=== PATIENT | male | born 1995 | race Caucasian/White ===

== ENCOUNTER 2019-11-04 19:30 | Emergency (ER) | payer SELFPAY ==
[2019-11-04 19:29] VITALS: BP 147/91; PULSE 106; RESP 18; TEMP 36.8; O2SAT 100
--- NOTE | 2019-11-04 19:33 | PC.NURSE ---
Pt states he wants to go home and that he didn't wish to come to the hospital to begin with but he felt pressured by the approver to come in. Pt states he doesn't want any test to be done. ERP aware.
--- NOTE | 2019-11-04 19:33 | ED.GENADULT ---
HPI - General Adult General Chief complaint: Unspecified Stated complaint: head injury Time Seen by Provider: 11/04/19 19:33 Source: patient and EMS Mode of arrival: EMS Limitations: no limitations History of Present Illness HPI narrative: Patient is a 24-year-old male who presents to emergency department per EMS from incarceration patient was brought to the emergency department he was striking his head at the [facility] where he has a small hematoma that is minimal in nature to the frontal scalp denies any headache loss of consciousness or other complaints denies suicidal or homicidal ideation Related Data Allergies Allergy/AdvReac Type Severity Reaction Status Date / Time No Known Allergies Allergy Unknown Unverified 12/02/18 18:22 Review of Systems Review of Systems: All systems reviewed & are unremarkable except as noted in HPI and below PMFSH Social History Social History (Updated 11/04/19 @ 19:34 by Darío Donis PA-C) Smoking status: Current every day smoker Exam Narrative: Exam Narrative: GENERAL: Well-appearing, well-nourished, and in no acute distress. HEAD: Normocephalic, small hematoma to the forehead EYES: PERRLA and EOMI. ENT: Nares clear, no rhinorrhea or epistaxis. Mucous membranes moist. CHEST: Clear to auscultation. No respiratory distress. No wheezes rales or rhonchi HEART: Regular rate and rhythm. No murmur heard. EXTREMITIES: Normal range of motion. No edema. SKIN: Warm, dry, no rash. NEURO: No focal deficits. Alert and oriented x3. Cranial nerves II through XII grossly intact PSYCH: Normal mood and affect. Course Course Emergency Course: Patient in the room in no distress aware of case findings treatment plan and diagnosis Vital Signs Vital signs: Vital Signs Temperature 98.2 F 11/04/19 19:29 Pulse Rate 106 H 11/04/19 19:29 Respiratory Rate 18 11/04/19 19:29 Blood Pressure 147/91 H 11/04/19 19:29 Pulse Oximetry 100 11/04/19 19:29 Temperature 98.2 F 11/04/19 19:29 Pulse Rate 106 H 11/04/19 19:29 Respiratory Rate 18 11/04/19 19:29 Blood Pressure 147/91 H 11/04/19 19:29 Pulse Oximetry 100 11/04/19 19:29 Medical Decision Making MDM Narrative Medical decision making narrative: Patient afebrile nontoxic-appearing no distress felt appropriate for outpatient reevaluation provided with reasons to return Vital Signs Vital Signs: Vital Signs Temperature 98.2 F 11/04/19 19:29 Pulse Rate 106 H 11/04/19 19:29 Respiratory Rate 18 11/04/19 19:29 Blood Pressure 147/91 H 11/04/19 19:29 Pulse Oximetry 100 11/04/19 19:29 Temperature 98.2 F 11/04/19 19:29 Pulse Rate 106 H 11/04/19 19:29 Respiratory Rate 18 11/04/19 19:29 Blood Pressure 147/91 H 11/04/19 19:29 Pulse Oximetry 100 11/04/19 19:29 Discharge Plan Discharge Clinical Impression: Head injury Patient Disposition: Home, Self-Care Condition: Stable Instructions: Antibiotic Form, Head Injury (ED) Additional Instructions: Follow up with your primary care doctor in 5-7 days for re-evaluation. Go to ER for worsening pain, vision changes, nausea/vomiting, fever/chills, weakness, chest pain, shortness of breath, numbness/tingling, slurred speech, difficulty walking, change in mental status etc. or any other concerns. Take any prescribed medications as directed. Follow-up/Referrals: PHYSICIAN,FITTER'S ASSISTANT [Primary Care Provider] - Lalo Herman MD [Physician] -
[2019-11-04 20:00] VITALS: BP 134/88; PULSE 98; RESP 18; O2SAT 98
== END 2019-11-04 20:02 | disposition home or self-care (01) ==
PROVIDERS: Emergency Provider Emergency Medicine
DX: S00.03XA Contusion of scalp, initial encounter (principal); W22.09XA Striking against other stationary object, initial encounter
CPT/HCPCS: 99282

== ENCOUNTER 2023-05-15 22:25 | Emergency (ER) | payer SELFPAY ==
--- NOTE | ~2023-05-15 | CT_ITS ---
EXAMINATION: CT soft tissue neck w con DATE: 05/16/2023 00:02 INDICATION: Evaluate for retained foreign body (fishbone) TECHNIQUE: Computed tomography (CT) of the neck was performed with 75 cc of Omnipaque 350 intravenous contrast. The dose-length product (DLP) was 481.07 mGy-cm. Automated exposure control and iterative reconstruction technique were employed. COMPARISON: None FINDINGS: There is a 1.7 cm thin, curvilinear, radiopaque foreign body embedded in the left tonsil wi th an approximately 3 mm portion external to the tonsil in the pharynx. No additional radiopaque fore ign body is identified. There is moderate bilateral cervical lymphadenopathy. No abscess is identifie d. IMPRESSION: 1. Curvilinear foreign body in the left tonsil, consistent with fishbone described in the clinical hi story. 2. Moderate bilateral cervical lymphadenopathy of unclear significance. Follow-up is recommended. Reviewed, dictated and finalized at location F. IMPRESSION: 1. Curvilinear foreign body in the left tonsil, consistent with fishbone descri bed in the clinical history. 2. Moderate bilateral cervical lymphadenopathy of unclear significance. Follow- up is recommended.
[2023-05-15 22:26] VITALS: BP 126/74; PULSE 90; RESP 20; TEMP 36.7; O2SAT 96
[2023-05-15] MEDS: LIDOCAINE HCL 2% VISC SOLN 15 ML UDC PO (22:44)
[2023-05-15 23:14] LABS: Anion Gap 6 mmol/L (8-16); Blood Urea Nitrogen 11 mg/dL (9-20); Calcium 9.3 mg/dL (8.4-10.2); Carbon Dioxide 34 mmol/L (22-30); Chloride 96 mmol/L (98-107); Estimated CRCL calculation 118 ml/min; Estimated Glomerular Filt Rate > 60; Glucose 94 mg/dL (65-110); Potassium 3.5 mmol/L (3.4-5.0); Sodium 136 mmol/L (137-145)
--- NOTE | 2023-05-16 00:41 | ED.SKABFB ---
HPI - Skin/Abscess/Foreign Bdy General Chief complaint: Skin/Abscess/Foreign Body Stated complaint: food bolus Time Seen by Provider: 05/16/23 00:41 History of Present Illness HPI narrative: This is a 28-year-old male, with no known past medical history, who presents to the emergency department with sensation of foreign body in the throat concerning for fishbone. The patient states he was eating catfish when he felt the sensation. He looked and saw fishbone. He attempted to remove it with pliers at home resulting in a significant amount of bloody mucus. He denies difficulty breathing, lightheadedness or loss of conscious Related Data Allergies Allergy/AdvReac Type Severity Reaction Status Date / Time No Known Allergies Allergy Unknown Unverified 12/02/18 18:22 Review of Systems Review of Systems: CONSTITUTIONAL: Denies fever, chills, or sweats. ENT: Foreign body sensation in throat denies rhinorrhea, congestion, or otalgia. CARDIOVASCULAR: Denies chest pain, palpitations, or edema. RESPIRATORY: Denies cough or dyspnea. GASTROINTESTINAL: Denies abdominal pain, nausea, vomiting, or diarrhea. NEUROLOGIC: Denies headache, numbness, dizziness, or weakness. PSYCHIATRIC: Denies anxiety or depression. PMFSH Past Medical History Medical History (Updated 05/16/23 @ 00:48 by Wan Fox MD) No significant past medical history Surgical History Surgical History (Updated 05/16/23 @ 00:48 by Wan Fox MD) No significant past surgical history Social History Social History (Updated 05/16/23 @ 00:48 by Wan oFx MD) Smoking status: Current every day smoker Alcohol intake: current Substance use: never Gender identity (if verbalized by the patient): Male Exam Narrative: GENERAL: Well-developed, well-nourished, and in no acute distress. HEAD: Normocephalic, atraumatic. EYES: PERRLA and EOMI. ENT: A foreign object consistent with fishbone is noted emerging from the left tonsil. There is a small amount of blood-tinged saliva but no active bleeding noted. Nares clear, no rhinorrhea or epistaxis. Mucous membranes moist. Oropharynx without tonsillar hypertrophy exudate or other lesions. NECK: Supple. No stridor CHEST: Clear to auscultation. No respiratory distress. No wheezes rales or rhonchi HEART: Regular rate and rhythm. No murmur heard. Normal peripheral pulses. NEURO: Alert and oriented x3. Moving all 4 limbs purposefully. PSYCH: Normal mood and affect. Course Course Emergency Course: 00:35 - My review of the patient's CT soft tissue neck is not concerning for active bleeding. The bone appears to be embedded next to the tonsil. It does not appear to be near the carotid artery. The patient again threatened to leave the emergency department. I was able to remove the fishbone with forceps without any noted bleeding. The patient tolerated procedure well.. See procedure note. Will discharge with recommendation for primary care follow-up. Discussed return emergency precautions including signs/symptoms of bleeding and airway compromise. The patient voiced understanding and is comfortable with the plan. All questions answered to his satisfaction. Vital Signs Vital signs: Vital Signs Temperature 98.1 F 05/15/23 22:26 Pulse Rate 90 05/15/23 22:26 Respiratory Rate 20 05/15/23 22:26 Blood Pressure 126/74 05/15/23 22:26 Pulse Oximetry 96 05/15/23 22:26 Oxygen Delivery Room Air 05/15/23 22:26 Temperature 98.1 F 05/15/23 22:26 Pulse Rate 90 05/15/23 22:26 Respiratory Rate 20 05/15/23 22:26 Blood Pressure 126/74 05/15/23 22:26 Pulse Oximetry 96 05/15/23 22:26 Oxygen Delivery Room Air 05/15/23 22:26 Procedures Foreign Body Removal Foreign Body #1: Foreign Body Removal Date: 05/16/23 Foreign Body Removal Time: 00:31 Site: oral Description of foreign body: other (Fish bone) Sedation/Analgesia: non
== END 2023-05-16 00:55 | disposition home or self-care (01) ==
LOC: ANHED 05-16 00:49
PROVIDERS: Emergency Provider Preventive Medicine Aerospace Medicine
DX: T17.228A Food in pharynx causing other injury, initial encounter (principal); F17.200 Nicotine dependence, unspecified, uncomplicated; R59.1 Generalized enlarged lymph nodes
CPT/HCPCS: 36415; 42809; 70491; 80048; 99284; Q9967